=== PATIENT | female | born 1950 | race Caucasian/White ===

== ENCOUNTER 2020-09-09 20:07 | Day surgery (SDCO) | payer MEDICARE ==
[~2020-09-09 20:07] MED LIST: HYDRALAZINE25 MG PO; K-DUR20 MEQ PO; LASIX20 MG PO; PREDNISONE 20MG20 MG PO; ZPAK PO
[2020-09-09 20:54] LABS: BASOPHIL 0.3 % (0-2); EOSINOPHIL 0 % (0-7); HCT 35.5 % (37.0-47.0); HGB 12.3 g/dl (12.5-16.0); MCHC 34.6 g/dL (32.0-36.0); MCV 89.4 fL (78.0-100.0); MONOCYTE 6.5 % (0-12); MPV 10.8 fL (6.0-9.5); NEUTROPHIL 79.6 % (41-80); NRBC 0; PLT 211 K/uL (150-400); RBC 3.97 M/uL (4.20-5.40); RDW 12.4 % (11.5-14.0); WBC 13.8 K/uL (4.0-10.5)
[2020-09-09 20:59] LABS: INR 1.15 (0.9-1.2)
[2020-09-09 21:00] LABS: D-DIMER 0.55 ug/mLFEU (0.00-0.41)
[2020-09-09 21:08] LABS: ALBUMIN 3.7 g/dL (3.4-5.0); BUN/CREAT RATIO (CALC) 14.6 RATIO; CREATININE 0.96 mg/dL (0.51-0.95); GLOBULIN (CALCULATION) 4.6 g/dL; POTASSIUM 3.3 mmol/L (3.5-5.1); TOTAL PROTEIN 8.3 g/dL (6.4-8.2)
[2020-09-10 02:28] LABS: MAGNESIUM 1.6 mg/dL (1.8-2.4); PHOSPHORUS 2.7 mg/dL (2.6-4.7)
--- NOTE | 2020-09-10 02:47 | NUR ---
CRUISE AGENT NOTIFIED OF SEPSIS PROTOCOL NOT BEING STARTED IN ER, NO FLUIDS GIVEN OR ANTIBIOTICS. PT WBC WAS AROUND 13, TEMP WAS REPORTED 99.5 FARENHEIT ON ARRIVAL, RESPIRATIONS REPORTED WERE 24 ON ARRIVAL. CRUISE AGENT WILL DRAW A LACTIC ACID AND BLOOD CULTURES AND GO FROM THERE. WILL CONTINUE TO MONITOR
[2020-09-10 06:18] LABS: INR 1.28 (0.9-1.2); PROTHROMBIN TIME 15.2 SECONDS (11.4-13.6)
--- NOTE | 2020-09-10 18:57 | NUR ---
STATED TO REMOVE IV DYE FROM ALLERGIES
[2020-09-10] MEDS ORDERED: NORVASC5 MG PO (20:06)
[2020-09-10] MEDS ORDERED: PRAVASTATIN SOD10 MG PO (20:06)
[2020-09-10] MEDS ORDERED: BUSPAR5 MG PO (20:06)
[2020-09-10] MEDS ORDERED: ZOLPIDEM TARTRA10 MG PO (20:08)
[2020-09-10] MEDS ORDERED: METOPROLOL SUCC50 MG PO (20:09)
[2020-09-10] MEDS ORDERED: VITAMIN D210 MCG PO (20:10)
[2020-09-11 06:15] LABS: BASOPHIL 0.2 % (0-2); EOSINOPHIL 0 % (0-7); HCT 32.3 % (37.0-47.0); LYMPHOCYTE 8.3 % (15-48); MCH 31.1 pg (25.0-31.0); MCHC 34.1 g/dL (32.0-36.0); MCV 91.2 fL (78.0-100.0); MONOCYTE 7.3 % (0-12); NEUTROPHIL 83.2 % (41-80); NRBC 0; PLT 207 K/uL (150-400); RBC 3.54 M/uL (4.20-5.40); RDW 12.7 % (11.5-14.0); WBC 16.7 K/uL (4.0-10.5)
[2020-09-11 06:50] LABS: BILIRUBIN - TOTAL 0.4 mg/dL (0.2-1.0); BUN/CREAT RATIO (CALC) 23.9 RATIO; CREATININE 1.17 mg/dL (0.51-0.95); GLOBULIN (CALCULATION) 3.8 g/dL; TOTAL PROTEIN 6.8 g/dL (6.4-8.2)
[2020-09-11 07:05] LABS: PRO-BNP 677 pg/mL (<125)
[2020-09-11] MEDS ORDERED: ELIQUIS5 MG PO (11:44)
[2020-09-11] MEDS ORDERED: NORCO 5-325 TA1 EACH PO (11:53)
[2020-09-11] MEDS ORDERED: LEVAQUIN500 MG PO (11:56)
--- NOTE | 2020-09-11 13:21 | NUR ---
DISCHARGE ORDERS RECEIVED. IV DC'D. PT VERBALIZED UNDERSTANDING OF ALL DC ORDERS AND APPOINTMENTS. PT TAKEN TO PT PICKUP BY WHEELCHAIR.
== END 2020-09-11 13:20 | disposition home or self-care (01) ==
LOC: FER 20:07 → FTCU 09-10 01:31
PROVIDERS: Emergency Medicine; Nurse Practitioner; ADMIT Internal Medicine
DX: I26.99 Other pulmonary embolism without acute cor pulmonale (principal); M25.512 Pain in left shoulder; I11.0 Hypertensive heart disease with heart failure; I50.9 Heart failure, unspecified; R65.10 Systemic inflammatory response syndrome (SIRS) of non-infectious origin without acute organ dysfunction; G47.00 Insomnia, unspecified; E78.5 Hyperlipidemia, unspecified; G47.30 Sleep apnea, unspecified; I07.1 Rheumatic tricuspid insufficiency; I65.21 Occlusion and stenosis of right carotid artery; I25.10 Atherosclerotic heart disease of native coronary artery without angina pectoris; K44.9 Diaphragmatic hernia without obstruction or gangrene; N28.89 Other specified disorders of kidney and ureter; Z79.899 Other long term (current) drug therapy; Z91.041 Radiographic dye allergy status; Z20.822 Contact with and (suspected) exposure to COVID-19
CPT/HCPCS: 36415; 71045; 71275; 80053; 83605; 83735; 83880; 84100; 84145; 84484; 85025; 85379; 85610; 85730; 87040; 87077; 93005; 93880; 93970; 94010; G0378; J1200; J1650; J2270; J2405; J2930; J3370; J7030; J7040; J7050; Q9967; U0002